=== PATIENT | male | born 1940 | race Caucasian/White ===

== ENCOUNTER 2018-11-07 15:21 | Emergency (ER) | payer OTHER ==
[~2018-11-07] VITALS: Ht 172.7 cm; Wt 83.5 kg
[~2018-11-07 15:21] MED LIST: AMLODIPINE BESYL5 M1 PO; ASPIR 8181 MG PO; CLONIDINE HCL0.1 MG PO; FOLIC ACID1 MG PO; GLU500 PO; LASIX40 MG PO; LISINOPRIL20 MG PO; LOVASTATIN20 MG PO; METFORMIN HCL500 MG PO; METOPROLOL PO; METOPROLOL SUCC25 M1 PO; NITROGLYCERIN0.4 MG SL; PLA75 PO; TERAZOSIN HCL10 MG PO; TOP50 PO; XARELTO10 M1 PO; ZESTRIL20 MG PO
[2018-11-07 16:32] LABS: BASOPHIL % 0.4 % (0-2); PLATELET COUNT 175 x10^3mcL (130-400)
[2018-11-07 16:44] LABS: CALCIUM 10.3 mg/dL (8.5-10.1); CARBON DIOXIDE 29.3 mmol/L (21-32); CHLORIDE SERUM 103 mmol/L (98-107); CREATININE SERUM 1.3 mg/dL (0.7-1.3); GLUCOSE SERUM 103 mg/dL (74-106); POTASSIUM SERUM 3.6 mmol/L (3.5-5.1); SODIUM SERUM 140 mmol/L (136-145)
[2018-11-07 16:49] LABS: ALBUMIN 3.7 g/dL (3.4-5.0); ALKALINE PHOSPHATASE 81 U/L (46-116); ALT/SGPT 20 U/L (16-63); AST/SGOT 16 U/L (15-37); BILIRUBIN TOTAL 0.4 mg/dL (0.20-1.00); TOTAL PROTEIN, SERUM 8.1 g/dL (6.4-8.2)
[2018-11-07 17:49] VITALS: BP 166/94
== END 2018-11-07 17:49 | disposition home or self-care (01) ==
LOC: ED 15:21
PROVIDERS: Emergency Medicine
DX: I48.91 Unspecified atrial fibrillation (principal); I11.0 Hypertensive heart disease with heart failure; I50.9 Heart failure, unspecified; E11.9 Type 2 diabetes mellitus without complications; Z85.51 Personal history of malignant neoplasm of bladder; Z95.5 Presence of coronary angioplasty implant and graft
CPT/HCPCS: J3490

== ENCOUNTER 2019-02-20 07:04 | Emergency (ER) | payer OTHER ==
[~2019-02-20] VITALS: Ht 172.7 cm; Wt 80.3 kg
[2019-02-20 07:11] VITALS: Ht 172.7 cm; Wt 80.3 kg
[2019-02-20 08:28] LABS: CARBON DIOXIDE 24.3 mmol/L (21-32); CHLORIDE SERUM 101 mmol/L (98-107); CREATININE SERUM 1.8 mg/dL (0.7-1.3); GLUCOSE SERUM 167 mg/dL (74-106); POTASSIUM SERUM 4.4 mmol/L (3.5-5.1); SODIUM SERUM 134 mmol/L (136-145)
[2019-02-20 08:29] LABS: UA SPECIFIC GRAVITY >=1.030 (1.005-1.035); microscopic required? YES; urine erythrocyte 3+ (NEGATIVE)
[2019-02-20 08:38] LABS: BASOPHIL % 0.2 % (0-2); PLATELET COUNT 164 x10^3mcL (130-400)
[2019-02-20 08:39] LABS: ALKALINE PHOSPHATASE 80 U/L (46-116); ALT/SGPT 19 U/L (16-63); AST/SGOT 15 U/L (15-37); BILIRUBIN TOTAL 0.68 mg/dL (0.20-1.00); TOTAL PROTEIN, SERUM 7.5 g/dL (6.4-8.2)
[2019-02-20 08:42] LABS: CK-MB 2.4 ng/mL (0-3.6)
[2019-02-20 08:45] LABS: AMPHETAMINE QUAL UR NONE DETECTED (See below)
[2019-02-20 08:45] LABS: FREE T4 1.17 ng/dL (0.76-1.46); FREE THYROXINE INDEX 3.2 ug/dL (1.4-4.5)
[2019-02-20 08:54] LABS: ALBUMIN 3.3 g/dL (3.4-5.0)
[2019-02-20 09:11] LABS: T3 TOTAL 0.46 ng/mL
[2019-02-20 09:24] LABS: ERYTHROCYTE SED RATE 40 mm/hr (0-20)
[2019-02-20 10:53] VITALS: BP 136/74
== END 2019-02-20 10:53 | disposition home or self-care (01) ==
LOC: ED 07:04
PROVIDERS: Specialist
DX: F23 Brief psychotic disorder (principal); N39.0 Urinary tract infection, site not specified; I11.0 Hypertensive heart disease with heart failure; I50.9 Heart failure, unspecified; E11.9 Type 2 diabetes mellitus without complications; I48.91 Unspecified atrial fibrillation; Z85.51 Personal history of malignant neoplasm of bladder; Z95.0 Presence of cardiac pacemaker
CPT/HCPCS: 84439; J0696; J7030; Q0092

== ENCOUNTER 2019-02-24 09:12 | Emergency (ER) | payer OTHER ==
[~2019-02-24] VITALS: Ht 172.7 cm; Wt 81.6 kg
[2019-02-24 09:17] VITALS: Ht 172.7 cm; Wt 81.6 kg
[2019-02-24 11:53] LABS: BASOPHIL % 0.6 % (0-2); PLATELET COUNT 183 x10^3mcL (130-400); RED CELL DISTRIBUTION WIDTH 13.7 % (11.5-14.5)
[2019-02-24 11:56] LABS: CARBON DIOXIDE 30.3 mmol/L (21-32); CHLORIDE SERUM 102 mmol/L (98-107); CREATININE SERUM 1.5 mg/dL (0.7-1.3); GLUCOSE SERUM 138 mg/dL (74-106); POTASSIUM SERUM 4.1 mmol/L (3.5-5.1); SODIUM SERUM 138 mmol/L (136-145)
[2019-02-24 12:01] LABS: ALBUMIN 3.7 g/dL (3.4-5.0); ALKALINE PHOSPHATASE 84 U/L (46-116); ALT/SGPT 23 U/L (16-63); AST/SGOT 16 U/L (15-37); BILIRUBIN TOTAL 0.39 mg/dL (0.20-1.00); TOTAL PROTEIN, SERUM 7.9 g/dL (6.4-8.2)
[2019-02-24 12:21] LABS: UA SPECIFIC GRAVITY 1.015 (1.005-1.035); microscopic required? YES
[2019-02-24 12:22] LABS: urine erythrocyte 4+ (NEGATIVE)
[2019-02-24 13:56] VITALS: BP 171/118
== END 2019-02-24 13:56 | disposition home or self-care (01) ==
LOC: ED 09:12
PROVIDERS: Emergency Medicine
DX: R31.9 Hematuria, unspecified (principal); I13.0 Hypertensive heart and chronic kidney disease with heart failure and stage 1 through stage 4 chronic kidney disease, or unspecified chronic kidney disease; E11.22 Type 2 diabetes mellitus with diabetic chronic kidney disease; N18.9 Chronic kidney disease, unspecified; I50.9 Heart failure, unspecified; Z79.01 Long term (current) use of anticoagulants; Z98.890 Other specified postprocedural states
CPT/HCPCS: J0696

== ENCOUNTER 2019-05-14 16:59 | Emergency (ER) | payer OTHER ==
[~2019-05-14] VITALS: Ht 172.7 cm; Wt 81.6 kg
[2019-05-14 17:05] VITALS: Ht 172.7 cm; Wt 81.6 kg
[2019-05-14 23:54] VITALS: BP 182/93
== END 2019-05-14 23:54 | disposition home or self-care (01) ==
LOC: ED 16:59
DX: S00.83XA Contusion of other part of head, initial encounter (principal); S80.02XA Contusion of left knee, initial encounter; I50.9 Heart failure, unspecified; I11.0 Hypertensive heart disease with heart failure; E11.9 Type 2 diabetes mellitus without complications; I48.91 Unspecified atrial fibrillation; Z85.51 Personal history of malignant neoplasm of bladder; W18.09XA Striking against other object with subsequent fall, initial encounter; Y93.89 Activity, other specified; Y92.096 Garden or yard of other non-institutional residence as the place of occurrence of the external cause; Y99.8 Other external cause status
CPT/HCPCS: 90715